=== PATIENT | male | born 1975 | race Caucasian/White ===

== ENCOUNTER 2016-06-07 16:30 | Emergency (ER) | payer BC, MEDICAID ==
[~2016-06-07] VITALS: Ht 175.3 cm; Wt 79.4 kg
[~2016-06-07 16:30] MED LIST: ARIP20TA8 PO; FLUO40CA8 PO; LAMO150T33 PO; LEVO1CAP2 PO; LEVO25TA9 PO; NAPR500T PO
[2016-06-07 17:31] LABS: BASOPHILS % (AUTO) 0.3 % (0.0-2.0); DIFF TOTAL % 100 %; EOSINOPHILS # (AUTO) 0.2 /CMM (0.0-0.7); EOSINOPHILS % (AUTO) 1.9 % (0.0-6.0); HEMATOCRIT 38 % (39-51); HEMOGLOBIN 12.6 g/dL (13.5-17.5); LYMPHOCYTES # (AUTO) 2.1 /CMM (0.8-4.8); LYMPHOCYTES % (AUTO) 23.7 % (20.0-44.0); MEAN CORPUSCULAR HEMOGLOBIN 30 PG (26.0-33.0); MEAN CORPUSCULAR HGB CONC 34 g/dl (31.0-36.0); MEAN CORPUSCULAR VOLUME 90 fL (80-96); MONOCYTES # (AUTO) 0.6 /CMM (0.1-1.30); MONOCYTES % (AUTO) 6.2 % (2.0-12.0); NEUTROPHILS # (AUTO) 6.1 /CMM (1.8-8.9); NEUTROPHILS % (AUTO) 67.9 % (43.0-81.0); PLATELET COUNT (AUTO) 374 /CMM (150-450); RED BLOOD CELL COUNT(AUTO) 4.18 MIL/uL (4.5-6.0)
[2016-06-07 17:39] LABS: ANION GAP 10 (5-14); CALCIUM, SERUM 8.1 mg/dL (8.5-10.1); CARBON DIOXIDE 29 mmol/L (21-32); CHLORIDE 110 mmol/L (98-107); CREATININE 0.8 mg/dL (0.6-1.3); GFR 107 mL/min (>60); GLUCOSE 112 mg/dL (74-106); POTASSIUM 3.8 mmol/L (3.5-5.1); SODIUM SERUM 145 mmol/L (136-145); UREA NITROGEN, BLOOD 23 mg/dL (7-18)
[2016-06-07 17:44] LABS: ALANINE AMINOTRANSFERASE 67 U/L (12-78); ALBUMIN 3.8 g/dL (3.4-5.0); ASPARTATE AMINOTRANSFERASE 44 U/L (15-37); BILIRUBIN,TOTAL 0.2 mg/dL (0.2-1.0); SALICYLATE 2.9 mg/dL (2.8-20.0); TOTAL PROTEIN, SERUM 6.2 g/dL (6.4-8.2)
[2016-06-07 17:45] LABS: ACETAMINOPHEN < 2 ug/ml (10-30); INDIRECT BILIRUBIN 0.2 mg/dL (0.0-1.1)
[2016-06-07 17:51] LABS: KETONES,URINE Trace (NEGATIVE); LEUKOCYTE ESTERASE ,URINE Negative (NEGATIVE); PH,URINE 5.5 (5.0-8.0)
[2016-06-07 17:53] LABS: ADD UA MICROSCOPIC YES
[2016-06-07 17:57] LABS: PHENCYCLIDINE SCREEN,URINE NEGATIVE (NEGATIVE)
[2016-06-07 17:58] LABS: CANNABINOID, URINE POSITIVE (NEGATIVE)
[2016-06-07 17:59] LABS: ADD URINE CULTURE NO; RBC,URINE 0-2 /HPF (0-2); WBC,URINE 0-2 /HPF (0-3)
[2016-06-07 18:56] VITALS: BP 120/70
== END 2016-06-07 18:59 | disposition home or self-care (01) ==
LOC: ER 16:31
DX: R07.9 Chest pain, unspecified (principal); F31.9 Bipolar disorder, unspecified; R51 Headache; V89.2XXA Person injured in unspecified motor-vehicle accident, traffic, initial encounter; Y93.89 Activity, other specified; Y92.89 Other specified places as the place of occurrence of the external cause; Y99.9 Unspecified external cause status
CPT/HCPCS: 36415; 70450; 71010; 80048; 80076; 80305; 80329; 81001; 84484; 85025; 93005; 99285; A4606; G0480 ×2; Z7610; 81000-TC; G6039-TC

== ENCOUNTER → 2016-10-12 | Emergency (ER) | payer BC ==
[~2016-10-12] VITALS: Ht 175.3 cm; Wt 81.6 kg
[~2016-10-12] MED LIST changes: +CLONIDINE HCL 0.1 MG TABLET ONE; +CLONIDINE HCL 0.1 MG TABLET PO ONE; +DIAZEPAM 10 MG TABLET ONE; +DIAZEPAM 10 MG TABLET PO ONE; +PROMETHAZINE HCL 25 MG/ML AMPUL IM ONE; +PROMETHAZINE HCL 25 MG/ML AMPUL ONE
[2016-10-12 08:35] VITALS: BP 135/81
== END | disposition home or self-care (01) ==
LOC: ER 08:03
DX: F11.23 Opioid dependence with withdrawal (principal); F31.9 Bipolar disorder, unspecified; F43.10 Post-traumatic stress disorder, unspecified; F41.9 Anxiety disorder, unspecified; E21.3 Hyperparathyroidism, unspecified; F17.200 Nicotine dependence, unspecified, uncomplicated; F12.10 Cannabis abuse, uncomplicated
CPT/HCPCS: 96372; 99283; A4606; J2550; Z7610; A6402